=== PATIENT | female | born 2000 | race Caucasian/White ===

== ENCOUNTER 2019-03-31 19:30 | Emergency (ER) | payer BC, OTHER ==
[~2019-03-31] VITALS: Ht 167.7 cm; Wt 79.3 kg
[2019-03-31 19:38] VITALS: BP 143/99
[2019-03-31] MEDS ORDERED: ONDANSETRON 4 MG (ZOFRAN) ORAL DISSOLVE TAB PO STA (19:47)
[2019-03-31] MEDS ORDERED: IBUPROFEN SUSP 100MG/5ML (MOTRIN) UDC PO ONE (20:00)
[2019-03-31] MEDS ORDERED: ONDA8TAB13 PO (20:01)
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
[2019-03-31] MEDS ORDERED: METH-313 PO (20:03)
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
--- NOTE | 2019-03-31 20:10 | NUR ---
WILL ADMINISTER MEDS SOON PATIENT RETURNS FROM RADIOLOGY
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
== END 2019-03-31 20:42 | disposition home or self-care (01) ==
LOC: ER 19:32
DX: S06.0X0A Concussion without loss of consciousness, initial encounter (principal); S16.1XXA Strain of muscle, fascia and tendon at neck level, initial encounter; M23.91 Unspecified internal derangement of right knee; R40.2142 Coma scale, eyes open, spontaneous, at arrival to emergency department; R40.2252 Coma scale, best verbal response, oriented, at arrival to emergency department; R40.2362 Coma scale, best motor response, obeys commands, at arrival to emergency department; V49.40XA Driver injured in collision with unspecified motor vehicles in traffic accident, initial encounter
CPT/HCPCS: 70450; 72050; 73562

== ENCOUNTER → 2019-04-25 | Outpatient (CLI) | payer OTHER, BC ==
[~2019-04-25] MED LIST: METH-313 PO; ONDA8TAB13 PO
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
== END ==
LOC: RAD 12:42
PROVIDERS: ATTEND Nurse Practitioner
DX: S83.241A Other tear of medial meniscus, current injury, right knee, initial encounter (principal)
CPT/HCPCS: 73721

== ENCOUNTER 2021-03-18 14:57 | Emergency (ER) | payer BC ==
[~2021-03-18] VITALS: Ht 167.7 cm; Wt 95.3 kg
[2021-03-18 15:18] VITALS: BP 154/87
--- NOTE | 2021-03-18 15:28 | ED General ---
General Chief Complaint: Lower Extremity Stated Complaint: FALL LEFT FOOT PAIN , HIT HEAD Source of Information: Patient Exam Limitations: No Limitations History of Present Illness Date Seen by Provider: Mar 18, 2021 Time Seen by Provider: 15:24 Initial Comments To ER with a fall. She slipped in some water and twisted the left ankle pain. She now has left lateral ankle pain. She did hit her head during the fall and now has a headache and some nausea and vomiting x1. Timing/Duration: 1/2 Hour Severity: Moderate Associated Systoms: Nausea/Vomiting Allergies and Home Medications Allergies Coded Allergies: No Known Drug Allergies (Unverified , 03/31/19) Patient Home Medication List Home Medication List Reviewed: Yes Methocarbamol (Robaxin-750) 750 Mg Tablet, 750 MG PO Q4H PRN for PAIN-MODERATE (5-7) Prescribed by: LAN DAWN on 03/31/192002 Ondansetron (Ondansetron Odt) 8 Mg Tab.rapdis, 8 MG PO Q4H PRN for NAUSEA/VOMITING Prescribed by: LAN DAWN on 03/31/192000 Review of Systems Review of Systems Constitutional: see HPI EENTM: see HPI Respiratory: no symptoms reported Cardiovascular: no symptoms reported Genitourinary: no symptoms reported Musculoskeletal: see HPI Skin: no symptoms reported Psychiatric/Neurological: No Symptoms Reported Past Roimyfj-Dutszp-Tcftah Hx Immunizations Up To Date Tetanus Booster (TDap): Less than 5yrs PED Vaccines UTD: Yes Seasonal Allergies Seasonal Allergies: No Past Medical History Surgeries: No Respiratory: No Cardiac: No Neurological: No Genitourinary: No Gastrointestinal: No Musculoskeletal: No Endocrine: No HEENT: No Cancer: No Psychosocial: No Integumentary: No Blood Disorders: No Physical Exam Vital Signs Vital Signs - First Documented 03/18/21 15:18 Temp 36.9 Pulse 99 Resp 20 B/P (MAP) 154/87 (109) Pulse Ox 97 O2 Delivery Room Air Capillary Refill : Height, Weight, BMI Height: '" Weight: lbs. oz. kg; 28.00 BMI Method: General Appearance: No Apparent Distress, WD/WN Eyes: Bilateral Eye Normal Inspection, Bilateral Eye PERRL, Bilateral Eye EOMI HEENT: PERRL/EOMI, TMs Normal Neck: Full Range of Motion, Normal Inspection Respiratory: Normal Breath Sounds, No Accessory Muscle Use, No Respiratory Distress Gastrointestinal: Non Tender, Soft Extremity: Normal Capillary Refill, Normal Inspection, Other (Left lateral ankle is tender to palpation but without ecchymosis or swelling or abrasion.) Neurologic/Psychiatric: Alert, Oriented x3 Skin: Normal Color, Warm/Dry Progress/Results/Core Measures Suspected Sepsis SIRS Temperature: Pulse: Respiratory Rate: Blood Pressure / Mean: Results/Orders My Orders Orders - LAN DAWN APRN Ct Head Wo (03/18/21 15:22) Ankle, Left, 3 Views (03/18/21 15:22) Vital Signs/I&O 03/18/21 15:18 Temp 36.9 Pulse 99 Resp 20 B/P (MAP) 154/87 (109) Pulse Ox 97 O2 Delivery Room Air Capillary Refill : Departure Impression Primary Impression: Sprain and strain of ankle Additional Impression: Concussion Disposition: 01 HOME, SELF-CARE Condition: Stable Departure-Patient Inst. Decision time for Depature: 15:47 Referrals: NO,LOCAL PHYSICIAN (PCP/Family) Primary Care Physician Patient Instructions: Ankle Sprain ED Work/School Note: Work Release Form Date Seen in the Emergency Department: Mar 18, 2021 Return to Work: Mar 20, 2021 LAN DAWN APRN Mar 18, 2021 15:27
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
== END 2021-03-18 15:54 | disposition home or self-care (01) ==
LOC: EDUNIT# 14:57 → ER 15:00
DX: S06.0X9A Concussion with loss of consciousness of unspecified duration, initial encounter (principal); S93.402A Sprain of unspecified ligament of left ankle, initial encounter; X50.1XXA Overexertion from prolonged static or awkward postures, initial encounter
CPT/HCPCS: 70450; 73610

== ENCOUNTER 2021-09-27 22:44 | Emergency (ER) | payer BC ==
[~2021-09-27] VITALS: Ht 168 cm; Wt 95.2 kg
[2021-09-27 22:55] VITALS: BP 142/89
--- NOTE | 2021-09-27 23:33 | ED Lower Extremity ---
General Chief Complaint: Lower Extremity Stated Complaint: R ANKLE PAIN Source: patient Exam Limitations: no limitations History of Present Illness Date Seen by Provider: September 27, 2021 Time Seen by Provider: 23:15 Initial Comments Patient is a 21-year-old female who presents to the emergency department with a chief complaint of right foot and ankle pain for approximately 1 week. Patient states it hurts to step down on her foot, hurts to walk on the heels and her toes. It is causing radiating pain up into her knee. She states she has been using a little bit of ice on her foot. Patient denies any trauma but after the onset of pain she states she did tripped over her dog. She complains mostly of plantar foot pain. No repetitive trauma/running. She denies recent illness. No rashes, redness. She has not taken anything for pain because she does not like to/cannot take pills. All other review of systems reviewed and negative except as stated. Onset: last week Pain/Injury Location: right foot Modifying Factors: Improves With Cold Therapy, Improves With Immobilization Allergies and Home Medications Allergies Coded Allergies: No Known Drug Allergies (Unverified , 03/31/19) Patient Home Medication List Home Medication List Reviewed: Yes Methocarbamol (Robaxin-750) 750 Mg Tablet, 750 MG PO Q4H PRN for PAIN-MODERATE (5-7) Prescribed by: LAN DAWN on 03/31/192002 Ondansetron (Ondansetron Odt) 8 Mg Tab.rapdis, 8 MG PO Q4H PRN for NAUSEA/VOMITING Prescribed by: LAN DAWN on 03/31/192000 Review of Systems Constitutional: see HPI EENTM: no symptoms reported Respiratory: no symptoms reported Cardiovascular: no symptoms reported Gastrointestinal: no symptoms reported Genitourinary: no symptoms reported Musculoskeletal: joint pain (right foot/plantar) Skin: no symptoms reported All Other Systems Reviewed Negative Unless Noted: Yes Past Hjvmwta-Guzono-Ifitdr Hx Immunizations Up To Date Tetanus Booster (TDap): Less than 5yrs PED Vaccines UTD: Yes Seasonal Allergies Seasonal Allergies: No Past Medical History Surgeries: No Respiratory: No Cardiac: No Neurological: No Genitourinary: No Gastrointestinal: No Musculoskeletal: No Endocrine: No HEENT: No Cancer: No Psychosocial: No Integumentary: No Blood Disorders: No Physical Exam Vital Signs Vital Signs - First Documented 09/27/21 22:55 Temp 36.3 Pulse 84 Resp 20 B/P (MAP) 142/89 (106) Pulse Ox 97 O2 Delivery Room Air Capillary Refill : Height, Weight, BMI Height: '" Weight: lbs. oz. kg; 33.00 BMI Method: General Appearance: WD/WN, no apparent distress Cardiovascular: regular rate, rhythm Respiratory: no respiratory distress, no accessory muscle use Hips: bilateral hip non-tender, bilateral hip normal inspection, bilateral hip normal range of motion, bilateral hip no evidence of injury Legs: bilateral leg non-tender, bilateral leg normal inspection, bilateral leg normal range of motion, bilateral leg no evidence of injury Knees: bilateral knee non-tender, bilateral knee normal inspection, bilateral knee normal range of motion, bilateral knee no evidence of injury Ankles: bilateral ankle non-tender, bilateral ankle normal inspection, bilateral ankle normal range of motion, bilateral ankle no evidence of injury; right ankle swelling (Slight edema noted to the medial aspect of the right ankle) Feet: bilateral foot normal inspection, bilateral foot normal range of motion, bilateral foot no evidence of injury; right foot soft tissue tenderness (Tenderness to palpation over the plantar fascia, tenderness with passive extension of the right foot) Neurologic/Psychiatric: alert, normal mood/affect, oriented x 3 Skin: normal color, warm/dry Progress/Results/Core Measures Results/Orders My Orders Orders - SEBASTIAN VANG MD Ketorolac Injection (Toradol Injection) (09/27/21 23:45) Vital Signs/I&O 09/27/21 22:55 Temp 36.3 Pulse 84 Resp 20 B/P (MAP) 142/89 (106) Pulse Ox 97 O2 Delivery Room Air Progress Progress Note : Time: 23:45 Progress Note Was notified by nursing staff, Mike HURST that the patient declined her Toradol injection. She states she had talked to her parents and they wanted her to have an x-ray. Mike advised that without trauma there was no indication for x-rays. The patient was discharged with supportive care per her discharge instructions. Departure Impression Primary Impression: Plantar fasciitis Disposition: 01 HOME, SELF-CARE Condition: Stable Departure-Patient Inst. Decision time for Depature: 23:42 Referrals: [facility] [place],LOCAL PHYSICIAN (PCP) Primary Care Physician Patient Instructions: Plantar Fasciitis Exercises Add. Discharge Instructions: You need to continue to ice the foot at least 20 minutes at a time 4-6 times d aily. A frozen water bottle and rolling it on the bottom of your foot will help tremendously. Vxch-pex-szhmfpz ibuprofen 3 tablets which is 600 mg every 6 hours with food will help with the inflammation and also the pain. I have attached stretching instructions to help with your foot pain. Do these on a daily basis. If you have any worsening swelling especially associated with redness/rash or fever please come back to the emergency room for reevaluation. SEBASTIAN VANG MD September 27, 2021 23:32
[2021-09-27] MEDS ORDERED: KETOROLAC 60 MG/2 ML VIAL IM ONE (23:45)
== END 2021-09-27 23:40 | disposition home or self-care (01) ==
LOC: EDUNIT# 22:44 → ER 22:46
DX: M72.2 Plantar fascial fibromatosis (principal)
CPT/HCPCS: 99281

== ENCOUNTER → 2022-04-15 | Outpatient (CLI) | payer BC ==
--- NOTE | 2022-04-15 17:58 | Diagnostic Imaging Report ---
INDICATION: SUPERIOR GLENOID LABRUM LESION OF LT SHOULDER INI ENCOUNTER COMPARISON: None. FINDINGS: 3 views of the left shoulder were obtained. There is no fracture, dislocation, or other acute bony abnormality identified. The soft tissues appear unremarkable. No radiopaque foreign body is identified. The visualized portions of the left lung are clear. IMPRESSION: No acute fractures or dislocations of the left shoulder. Dictated by: Dictated on workstation # [id number]
== END ==
LOC: RAD 16:02
PROVIDERS: ATTEND Family Medicine Sports Medicine
DX: S43.432A Superior glenoid labrum lesion of left shoulder, initial encounter (principal); X58.XXXA Exposure to other specified factors, initial encounter
CPT/HCPCS: 73030